=== PATIENT | female | born 1945 | race Caucasian/White ===

== ENCOUNTER 2016-05-28 21:44 | Emergency (ER) | payer OTHER ==
--- NOTE | 2016-05-28 22:38 | PROVIDER DOCUMENTATION ---
HPI-General Adult <KeithEmreErasmo - Last Filed: 05/29/16 01:10> - General Source: patient - History of Present Illness -Gen Adult Nature of Presenting Problems: 70 year old F presents to the ED with a cc of high blood pressure. PT states that she began feeling weird around 1730. PT states that she took her blood pressure and it was high. PT states that she took her night time medications with no relief. Location of Pain/Injury: reports: none Pain Radiation: reports: no radiation Severity: reports: mild Onset/Duration: reports: this evening Timing: reports: still present Context/Activities at Onset: reports: none Modifying Factors: improves with: nothing Similar Symptoms Previously?: No Recently seen or treated by another doctor?: No <Ellen Stroud - Last Filed: 05/29/16 01:12> - General Chief Complaint: B/P Problems Stated Complaint: HIGH BP Time Seen by Provider: 05/28/16 22:15 Allergies/Adverse Reactions: Patient Allergies Allergy/AdvReac Type Severity Reaction Status Date / Time No Known Allergies Allergy Verified 05/28/16 23:08 Home Medications: Home Medication List Medication Instructions Recorded Confirmed Last Taken Type Aspirin 81 mg PO DAILY 05/28/16 05/28/16 05/28/16 21:30 History Dicyclomine HCl 20 mg PO BID 05/28/16 05/28/16 05/28/16 08:30 History Fish Oil/Dha/Epa [Fish Oil 1,200 1 each PO DAILY 05/28/16 05/28/16 05/28/16 08: 30 History mg Fish Oil] Fluticasone/Salmet 250/50 INH 1 puff INH RTBID 05/28/16 05/28/16 05/28/16 08:30 History [Advair 250/50 Diskus] Glucosam/Chond/Hyalu/Cf Borate 1 each PO DAILY 05/28/16 05/28/16 05/28/16 08:30 History [Move Free Joint Health Tablet] Isosorbide Mononitrate [Isosorbide 30 mg PO DAILY 05/28/16 05/28/16 05/28/16 08: 30 History Mononitrate ER] Metoprolol [Lopressor] 25 mg PO BID 05/28/16 05/28/16 05/28/16 20:00 History Pantoprazole Sodium 40 mg PO DAILY 05/28/16 05/28/16 05/28/16 08:30 History Pravastatin Sodium 20 mg PO HS 05/28/16 05/28/16 05/28/16 20:00 History Amlodipine Besylate [Norvasc] 10 mg PO HS #30 tablet 05/29/16 Unknown Rx Lisinopril 10 mg PO DAILY #30 tablet 05/29/16 Unknown Rx Review of Systems - Adult - REVIEW OF SYSTEMS - ADULT Constitutional: denies: chills, fever Eyes: reports: no symptoms reported Ears, Nose, Mouth & Throat: reports: no symptoms reported Cardiovascular: denies: chest pain, palpitations Respiratory: denies: cough, shortness of breath Gastrointestinal: denies: nausea, vomiting Genitourinary: reports: no symptoms reported Musculoskeletal: reports: no symptoms reported Integumentary: reports: no symptoms reported Neurological: reports: no symptoms reported Psychiatric: reports: no symptoms reported Endocrine: reports: no symptoms reported Hematologic/Lymphatic: reports: no symptoms reported Allergic/Immunologic: reports: no symptoms reported All Other Systems: Reviewed and Negative <Ellen Stroud - Last Filed: 05/29/16 01:12> Past History - Adult - PAST MEDICAL HISTORY-ADULT Review of Records: reports: Nursing Assessment Review, Medications Reviewed Major Childhood Illnesses: reports: denies history Cardiovascular: reports: HTN - PRIOR SURGERIES/PROCEDURES Surgical/Procedure History: reports: cardiac stent - IMMUNIZATION STATUS Childhood Immunizations: See Nurse Assessment Flu Vaccine: See Nurse Assessment - SOCIAL HISTORY Smoking: non-smoker Substance Use: none/never Alcohol Use Frequency: never <Ellen Stroud - Last Filed: 05/29/16 01:12> Physical Exam-General - PHYSICAL EXAM-ADULT Initial Vital Signs Reviewed: Yes - CONSTITUTIONAL General Appearance: appears well, alert, no apparent distress - RESPIRATORY Respiratory: chest non-tender, lungs clear, normal breath sounds - CARDIOVASCULAR Cardiovascular: normal peripheral pulses, regular rate, rhythm, no edema - GASTROINTESTINAL (ABDOMEN) Abdominal Exam: non tender, soft - MUSCULOSKELETAL Extremity: pedal edema (1+ bilateral pitting edema) - SKIN Integumentary: normal color, normal turgor, warm/dry - PSYCHIATRIC Psych/Mental Status: normal mood/affect, normal thought content, normal thought process, oriented x 3 <Maximus,Ellen - Last Filed: 05/29/16 01:12> Progress - REASSESSMENT Reassessment #1 Time Reassessed: 01:11 Status: improving <Saulo Parker - Last Filed: 05/29/16 01:10> - PLAN OF CARE/RESULTS Progress/Plan/Lab Results: Orders Category Date Time Status Vital Signs Order Q15M Care 05/28/16 23:40 Active CHEST-2 VIEWS [RAD] Stat Exams 05/28/16 23:11 Taken CBC WITH ELECTRONIC DIFF [HEME] Stat Lab 05/28/16 22:20 Completed COMPREHENSIVE METABOLIC PANEL [CHEM] Stat Lab 05/28/16 22:20 Completed PRO B-NATRIURETIC PEPTIDE Stat Lab 05/28/16 22:20 Completed Amlodipine [Norvasc] Med 05/28/16 23:24 Discontinued 10 mg PO NOW ONE Enalaprilat [Vasotec] Med 05/28/16 22:41 Discontinued 1.25 mg IV NOW ONE Furosemide [Lasix] Med 05/28/16 22:41 Discontinued 40 mg IV NOW ONE LISINOpril [Prinivil] Med 05/28/16 23:24 Discontinued 10 mg PO NOW ONE EKG [EKG] Stat Ther 05/28/16 21:51 Ordered Laboratory Tests 05/28/16 05/28/16 05/28/16 22:20 22:20 22:20 WBC 7.89 RBC 4.36 Hgb 14.0 Hct 41.1 MCV 94.3 MCH 32.1 H MCHC 34.1 RDW Std Deviation 13.5 Plt Count 187 MPV 10.4 Immature Gran % (Auto) 0.0 Neut % (Auto) 61.7 Lymph % (Auto) 25.6 [place] % (Auto) 11.4 H Eos % (Auto) 1.0 Baso % (Auto) 0.3 Immature Gran # (Auto) 0.00 Neut # (Auto) 4.87 Lymph # (Auto) 2.02 [place] # (Auto) 0.90 H Eos # (Auto) 0.08 Baso # (Auto) 0.02 Sodium 139 Potassium 4.2 Chloride 103 Carbon Dioxide 21 L Anion Gap 15 BUN 11 Creatinine 0.9 Estimated GFR/1.73 m2 > 60 BUN/Creatinine Ratio 12 Glucose 85 Calculated Osmolality 276 Calcium 9.1 Total Bilirubin 0.65 AST 32 H ALT 22 Alkaline Phosphatase 79 [id number]-[id number] Pept 93 Total Protein 6.7 Albumin 3.9 Globulin 2.8 Albumin/Globulin Ratio 1.4 Vital Signs - 24 hr 05/28/16 05/28/16 05/29/16 21:59 23:00 00:05 Temperature 97.9 F Pulse Rate 65 63 62 Respiratory 20 18 23 Rate Blood Pressure 180/96 199/77 167/101 O2 Sat by Pulse 99 95 96 Oximetry 05/29/16 05/29/16 05/29/16 00:15 00:30 00:45 Temperature Pulse Rate 59 L 60 66 Respiratory 14 17 14 Rate Blood Pressure 138/75 138/77 146/75 O2 Sat by Pulse 97 97 97 Oximetry 05/29/16 01:02 Temperature Pulse Rate 64 Respiratory 16 Rate Blood Pressure 131/76 O2 Sat by Pulse 95 Oximetry Pt given results and will be d/c home w/ rx to follow up with PCP. Pt verbally understood instructions. PT remained clinically stable throughout the course of the ED stay and will return if symptoms worsen. - EKG 1 Time of EKG reading by physician:: 21:53 EKG Read and Signed by:: Saulo Parker EKG Interpretation (*Must complete 3 of following elements*): Abnormal Rate: 65 Rhythm: NSR ST Wave: non-specific ST changes - XRAY 1 XRAY Study: Chest XRAY Interpretation: mesotheleoma, borderline cardiomegally- Dr. Jose G HAIRSTON MD <Ellen Stroud - Last Filed: 05/29/16 01:12> Departure - Departure Time of Disposition Order: 01:10 Certified Medical Emergency: Emergent <Saulo Parker - Last Filed: 05/29/16 01:10> <Ellen Stroud - Last Filed: 05/29/16 01:12> - Departure DIAGNOSIS: Hypertensive urgency Disposition: HOME 01 Condition: Stable Prescriptions: Lisinopril 10 mg PO DAILY #30 tablet Amlodipine Besylate [Norvasc] 10 mg PO HS #30 tablet Referrals: Thad Dowling MD [Primary Care Provider] - Attestation - Scribe Verification/Attestation Scribe:: Ellen Stroud Acting as Scribe for:: Saulo Parker Scribe documention review:: This chart was documented by a scribe and accurately reflects the service the provider performed and the decisions made by the provider. <Ellen Stroud - Last Filed: 05/29/16 01:12> Physician Attestation - Physician Attestation I, the provider, attest to the following statement:: Saulo Parker Physician documentation Attestation:: This documentation recorded by the scribe accurately reflects the service I personally performed and the decisions made by me. <Ellen Stroud - Last Filed: 05/29/16 01:12>
[2016-05-28] MEDS ORDERED: VASOTEC IV ONE (22:41)
[2016-05-28] MEDS ORDERED: LASIX IV ONE (22:41)
[2016-05-28 23:21] LABS: MANUAL DIFF NEEDED? NO
[2016-05-28] MEDS ORDERED: NORVASC PO ONE (23:24)
[2016-05-28] MEDS ORDERED: PRINIVIL PO ONE (23:24)
[2016-05-28 23:26] LABS: BASO% 0.3 % (0.0-0.8); EOS# 0.08 X1000 (0.0-0.7); HEMATOCRIT 41.1 % (37.0-47.0); LYMPH# 2.02 X1000 (1.2-3.4); LYMPH% 25.6 % (20.5-51.1); MCH 32.1 PG (27-31); MCHC 34.1 g/dL (33-37); MCV 94.3 FL (81-99); MONO% 11.4 % (1.7-9.3); MPV 10.4 FL (7.4-10.4); NEUT% 61.7 % (42.2-75.2); PLT 187 X1000 (130-400); RBC 4.36 XMIL (4.2-5.4)
[2016-05-28 23:52] LABS: AGAP 15; ALBUMIN 3.9 g/dL (3.5-5.0); ALKALINE PHOSPHATASE 79 U/L (32-104); BUN 11 mg/dL (8-22); CALCIUM 9.1 mg/dL (8.8-10.2); CHLORIDE 103 mmol/L (98-107); COSMO 276; GOT 32 U/L (10-30); GPT 22 U/L (10-36); POTASSIUM 4.2 mmol/L (3.5-5.1); SODIUM 139 mmol/L (136-145); TCO2 21 mmol/L (25-35); TOTAL BILIRUBIN 0.65 mg/dL (0.20-1.00); TOTAL PROTEIN 6.7 g/dL (6.3-8.3)
[2016-05-29 01:03] VITALS: BP 131/76
--- NOTE | 2016-05-29 08:03 | Diag Imaging Result Document ---
PROCEDURE NAME: CHEST-2 VIEWS - 05/28/2016 FRONTAL AND LATERAL CHEST, TWO VIEWS: COMPARISON: 06/21/2015. FINDINGS: The lungs are well expanded. The heart is mildly prominent. The vessels are small. No pleural effusions. No pneumonia. There is a granuloma in the midleft lung. Scarring is found in the lower right lung. IMPRESSION: Stable chest.
--- NOTE | 2016-05-29 09:21 | EKG Report ---
Test Performed on : 05/28/2016 9:53:08 PM Test Reason : CHEST PAIN Blood Pressure : / mmHG Vent. Rate : 065 BPM Atrial Rate : 065 BPM P-R Int : 152 ms QRS Dur : 076 ms QT Int : 436 ms P-R-T Axes : 034 083 069 degrees QTc Int : 453 ms Normal sinus rhythm. ST & T wave abnormality, consider anterior ischemia Abnormal ECG No previous ECGs available Unconfirmed Result
== END 2016-05-29 01:22 | disposition home or self-care (01) ==
LOC: ED 21:44
DX: I16.0 Hypertensive urgency (principal); R94.31 Abnormal electrocardiogram [ECG] [EKG]; I10 Essential (primary) hypertension; R60.0 Localized edema; Z79.82 Long term (current) use of aspirin; Z79.899 Other long term (current) drug therapy; Z95.5 Presence of coronary angioplasty implant and graft
CPT/HCPCS: 71020; 80053; 83880; 85025; 93005; 96374; 96375; J1940

== ENCOUNTER 2016-05-29 12:50 | Emergency (ER) | payer OTHER ==
[2016-05-29] MEDS ORDERED: NS 1,000 ML ONE (14:00)
[2016-05-29] MEDS ORDERED: NS 500 ML IV ONE ×3 (14:03→18:24)
--- NOTE | 2016-05-29 14:08 | PROVIDER DOCUMENTATION ---
HPI-General Adult - General Source: patient - History of Present Illness -Gen Adult Nature of Presenting Problems: patient is a 70 y/o f that presents to the ER with weakness, decreased BP, and near syncope. Patient was seen last night for bp issues, given Vasotec, Norvasc , and Lisinopril early this am (1am). Patient took meds this am and her bp dropped and nearly passed out and had to catch her. EMS arrived, patient was feeling better but wanted her to be checked out. denies chest pain, shortness of breath, or palpitations Location of Pain/Injury: reports: generalized Quality of Pain: reports: other (weakness) Severity: reports: moderate Onset/Duration: reports: gradual, this morning Timing: reports: still present, constant Context/Activities at Onset: reports: none Modifying Factors: improves with: nothing Associated Symptoms: reports: syncope, weakness. denies: back/neck pain, chest pain, diarrhea, dizziness, fever/chills, genitourinary problems, nausea, vomiting Similar Symptoms Previously?: No Recently seen or treated by another doctor?: Yes <Javan Stinson - Last Filed: 05/29/16 18:08> <Saulo Parker - Last Filed: 05/30/16 00:33> - General Chief Complaint: B/P Problems Stated Complaint: NEAR SYNCOPE Time Seen by Provider: 05/29/16 13:41 Allergies/Adverse Reactions: Patient Allergies Allergy/AdvReac Type Severity Reaction Status Date / Time No Known Allergies Allergy Verified 05/29/16 13:14 Home Medications: Home Medication List Medication Instructions Recorded Confirmed Last Taken Type Aspirin 81 mg PO DAILY 05/28/16 05/29/16 05/29/16 History Dicyclomine HCl 20 mg PO BID 05/28/16 05/29/16 05/29/16 History Fish Oil/Dha/Epa [Fish Oil 1,200 1 each PO DAILY 05/28/16 05/29/16 05/29/16 History mg Fish Oil] Fluticasone/Salmet 250/50 INH 1 puff INH RTBID 05/28/16 05/29/16 05/29/16 History [Advair 250/50 Diskus] Glucosam/Chond/Hyalu/Cf Borate 1 each PO DAILY 05/28/16 05/29/16 05/29/16 History [Move Free Joint Health Tablet] Isosorbide Mononitrate [Isosorbide 30 mg PO DAILY 05/28/16 05/29/16 05/29/16 History Mononitrate ER] Metoprolol [Lopressor] 25 mg PO BID 05/28/16 05/29/16 05/29/16 History Pantoprazole Sodium 40 mg PO DAILY 05/28/16 05/29/16 05/29/16 History Pravastatin Sodium 20 mg PO HS 05/28/16 05/29/16 05/28/16 20:00 History Amlodipine Besylate [Norvasc] 10 mg PO HS #30 tablet 05/29/16 05/29/16 Unknown Rx Lisinopril 10 mg PO DAILY #30 tablet 05/29/16 05/29/16 Unknown Rx Review of Systems - Adult - REVIEW OF SYSTEMS - ADULT Constitutional: reports: fatique. denies: chills, fever Eyes: reports: no symptoms reported Ears, Nose, Mouth & Throat: reports: no symptoms reported Cardiovascular: reports: syncope. denies: chest pain, palpitations Respiratory: denies: cough, dyspnea on exertion, shortness of breath, wheezing Gastrointestinal: denies: abdominal pain, diarrhea, nausea, vomiting Genitourinary: reports: no symptoms reported Musculoskeletal: reports: no symptoms reported Integumentary: reports: no symptoms reported Neurological: reports: syncope. denies: dizziness/vertigo, headache/migraines Psychiatric: reports: no symptoms reported Endocrine: reports: no symptoms reported Hematologic/Lymphatic: reports: no symptoms reported Allergic/Immunologic: reports: no symptoms reported All Other Systems: Reviewed and Negative <Javan Stinson - Last Filed: 05/29/16 18:08> Past History - Adult - PAST MEDICAL HISTORY-ADULT Review of Records: reports: Old Records Reviewed, Nursing Assessment Review, Medications Reviewed Cardiovascular: reports: HTN, hyperlipidemia Respiratory: reports: other (meso) Gastrointestinal: reports: GERD - PRIOR SURGERIES/PROCEDURES Surgical/Procedure History: reports: cardiac stent - IMMUNIZATION STATUS Childhood Immunizations: See Nurse Assessment Flu Vaccine: See Nurse Assessment - SOCIAL HISTORY Smoking: non-smoker Alcohol Use Frequency: occasionally Living Situation: family <Javan Stinson - Last Filed: 05/29/16 18:08> Physical Exam-General - PHYSICAL EXAM-ADULT Initial Vital Signs Reviewed: Yes - CONSTITUTIONAL General Appearance: alert, mild distress - EYES Eyes: PERRL/EOMI, pink conjunctivae - HEAD, EARS, NOSE, MOUTH & THROAT HENMT: normocephalic/atraumatic, moist mucous membranes, normal ENT inspection - NECK Neck: full range of motion, normal inspection - RESPIRATORY Respiratory: lungs clear, normal breath sounds, no respiratory distress, no accessory muscle use - CARDIOVASCULAR Cardiovascular: regular rate, rhythm, no gallop, no murmur - GASTROINTESTINAL (ABDOMEN) Abdominal Exam: normal bowel sounds, non tender, soft - MUSCULOSKELETAL Back Exam: no CVA tenderness, no vertebral tenderness Extremity: normal range of motion, normal inspection, no pedal edema, normal capillary refill - SKIN Integumentary: normal color, warm/dry - NEUROLOGIC Neurologic: edger hand II-XII nml as tested, no motor/sensory deficits - PSYCHIATRIC Psych/Mental Status: normal mood/affect, normal thought content, normal thought process, oriented x 3 <Javan Stinson - Last Filed: 05/29/16 18:08> Progress - PLAN OF CARE/RESULTS Progress/Plan/Lab Results: plan of care-fluids - REASSESSMENT Reassessment #1 Time Reassessed: 15:25 Status: other Reassessment Comment: another bolus of 500cc of fluids ordered Reassessment #2 Time Reassessed: 17:00 Status: unchanged - CHANGE OF SHIFT REPORT (ED Provider) Report Given and Care Transferred to:: Time of Transfer: 18:09 Items Pending: Other (awaiting bp to raise up) <Javan Stinson - Last Filed: 05/29/16 18:08> Departure <Javan Stinson - Last Filed: 05/29/16 18:08> - Departure Time of Disposition Order: 00:33 Certified Medical Emergency: Emergent <Saulo Parker - Last Filed: 05/30/16 00:33> - Departure DIAGNOSIS: Hypotension Disposition: HOME 01 Condition: Stable Additional Instructions: ED Follow Up Instructions: You have been treated by a care provider in the Emergency Department. These instructions are being provided to you so you can have an understanding of how to care for yourself upon discharge. Upon discharge from the Emergency Department, you are responsible for making arrangements for follow-up care by a physician of your choice. Take all prescribed medications as directed. Return to the Emergency Department immediately for any new or worsening symptoms. You may call the Physician Referral phone number at [phone] to obtain a list of Physicians who are taking new patients. Referrals: Thad Dowling MD [Primary Care Provider] - Instructions: Hypotension, [id number] Attestation - Scribe Verification/Attestation Scribe:: Javan Stinson Acting as Scribe for:: Basim Ngo Scribe documention review:: This chart was documented by a scribe and accurately reflects the service the provider performed and the decisions made by the provider. <Javan Stinson - Last Filed: 05/29/16 18:08> Physician Attestation - Physician Attestation I, the provider, attest to the following statement:: Basim Ngo Physician documentation Attestation:: This documentation recorded by the scribe accurately reflects the service I personally performed and the decisions made by me. <Javan Stinson - Last Filed: 05/29/16 18:08>
[2016-05-29] MEDS ORDERED: ZOFRAN IV ONE (16:16)
[2016-05-29 21:11] VITALS: BP 105/63
== END 2016-05-29 21:20 | disposition home or self-care (01) ==
LOC: EDBD → ED 12:50
DX: I95.9 Hypotension, unspecified (principal); R53.1 Weakness; R55 Syncope and collapse; R53.83 Other fatigue; I10 Essential (primary) hypertension; E78.5 Hyperlipidemia, unspecified; Z79.82 Long term (current) use of aspirin; Z79.899 Other long term (current) drug therapy; Z95.5 Presence of coronary angioplasty implant and graft
CPT/HCPCS: J2405; J7040